=== PATIENT | male | born 1985 | race Caucasian/White ===

== ENCOUNTER 2020-04-18 10:08 | Emergency (ER) | payer OTHER ==
[2020-04-18 10:28] VITALS: BP 124/97; PULSE 79
--- NOTE | 2020-04-18 10:55 | EDM.PDOC ---
ED HPI GENERAL MEDICAL PROBLEM - General Chief Complaint: Upper Extremity Injury/Pain Stated Complaint: L ARM INJURY Time Seen by Provider: 04/18/20 10:43 - History of Present Illness INITIAL COMMENTS - FREE TEXT/NARRATIVE: 84-year-old male presents the emergency room with a left arm injury. Just before arrival the patient was at work he was unloading a riding lawnmower/tractor. By a series of unfortunate events the patient drove off the lift gate fell about 6 feet landing on his left side the tractor was upside down. The patient did hit his head he believes on the roll bar of the tractor but he had no loss of consciousness no headache. Besides his left arm he has no complaints at this time. Patient denies any significant past medical history. Left Arm Pain Score (Numeric/FACES): 8 - Related Data Allergies Allergy/AdvReac Type Severity Reaction Status Date / Time azithromycin [From Zithromax] Allergy Nausea and Verified 04/18/20 10:27 Vomiting ibuprofen Allergy Stomach Verified 04/18/20 10:27 Upset oxycodone HCl Allergy Vomiting Verified 04/18/20 10:27 [From OxyContin] Home Meds: Home Meds Acetaminophen/HYDROcodone [[place] 325-5 MG] 1 - 2 tab PO Q6H PRN #30 tablet 04/18/20 [Rx] Past Medical History Other Gastrointestinal History: H-Pylori Other Musculoskeletal History: 5 fingers right hand, facial fx, left 2nd finger, right 3rd rib Other Neuro History: x3 concussions - Infectious Disease History Infectious Disease History: Reports: Novel Coronavirus - Past Surgical History GI Surgical History: Reports: EGD Other GI Surgeries/Procedures: repair tear in stomach lining as child Other Musculoskeletal Surgeries/Procedures:: left hand surgery - reconstruction, facial fx with surgery, 5 finger fx right hand Social & Family History - Family History Cardiac: Reports: CAD, [place] Endocrine/Metabolic: Reports: Diabetes, Type I, Diabetes, type II Oncologic: Reports: Other (See Below) Other Oncologic Family History: unknown types of ca - Tobacco Use Tobacco Use Status *Q: Current Every Day Tobacco User Years of Tobacco use: 15 Packs/Tins Daily: 0.5 - Caffeine Use Caffeine Use: Reports: Coffee - Recreational Drug Use Recreational Drug Use: No Review of Systems - Review of Systems Review Of Systems: See Below Constitutional: Reports: No Symptoms Eyes: Reports: No Symptoms Ears: Reports: No Symptoms Nose: Reports: No Symptoms Mouth/Throat: Reports: No Symptoms Respiratory: Reports: No Symptoms Cardiovascular: Reports: No Symptoms GI/Abdominal: Reports: No Symptoms Musculoskeletal: Reports: Other (Other than the left arm pain he is doing well). Denies: Neck Pain, Shoulder Pain, Back Pain, Leg Pain, Foot Pain Skin: Reports: No Symptoms Neurological: Reports: No Symptoms Psychiatric: Reports: No Symptoms ED EXAM, GENERAL - Physical Exam Exam: See Below Exam Limited By: No Limitations General Appearance: Alert, No Apparent Distress Eye Exam: Bilateral Eye: Normal Inspection Ears: Normal External Exam, Normal Canal, Hearing Grossly Normal Nose: Normal Inspection, Normal Mucosa, No Blood Throat/Mouth: Normal Lips, Normal Gums, Normal Oropharynx, Normal Voice, No Airway Compromise. No: Normal Teeth (His teeth are in poor state of repair) Head: Atraumatic, Normocephalic Neck: Normal Inspection, Supple, Non-Tender, Full Range of Motion. No: Tender Midline Respiratory/Chest: No Respiratory Distress, Lungs Clear, Normal Breath Sounds Cardiovascular: Normal Peripheral Pulses, Regular Rate, Rhythm, No Edema, No Murmur GI/Abdominal: Normal Bowel Sounds, Soft, Non-Tender, No Distention, Pelvis Stable Back Exam: Normal Inspection, Full Range of Motion. No: CVA Tenderness (L), CVA Tenderness (R), Vertebral Tenderness Extremities: Other (Swelling over the olecranon on the left upper extremity otherwise the other 3 extremities palpate normal normal neurologic function.) Neurological: Alert, Oriented, CN II-XII Intact, Normal Cognition, Normal Gait, Normal Reflexes, No Motor/Sensory Deficits, Other (Initially the patient had a little bit of tingling and numbness in his left forearm however this is now resolved) Psychiatric: Normal Affect, Normal Mood Skin Exam: Warm, Dry, Intact, Normal Color, No Rash Lymphatic: No Adenopathy ED TRAUMA EXTREMITY PROCEDURES - Splinting Left Upper Extremity Splint Site: Posterior slab splint left arm 40 to 45% flexion at the elbow Pre-Procedure NV Status: Normal Post-Procedure NV Status: Normal Splint Material: Fiberglass Splint Design: Posterior Applied & Form Fitted By: Provider Provider Post-Splint Application NV Check: NV Status Normal, Other (Patient may have had a little bit of numbness and tingling and put the splint on but after it set up this was resolved) Complications: No Course - Vital Signs Last Recorded V/S: Last Vital Signs Temp 36.9 C 04/18/20 10:20 Pulse 79 04/18/20 10:20 Resp BP 124/97 H 04/18/20 10:20 Pulse Ox 99 04/18/20 10:20 - Re-Assessments/Exams Free Text/Narrative Re-Assessment/Exam: 04/18/20 13:23 Patient shows an olecranon fracture. Dr. Lui did review the x-rays and would like the patient to be seen in his office Tuesday anticipating surgery on Tuesday Departure - Departure Time of Disposition: 13:24 Disposition: Home, Self-Care 01 Clinical Impression: Fracture of left olecranon process - Discharge Information Referrals: PCP,None [Primary Care Provider] - Yuan Lui MD [Physician] - Forms: ED Department Discharge Additional Instructions: Return to the emergency room with any questions problems or worsening symptoms. Keep an eye on the splint if you develop any numbness or tingling in your hand/fingers loosen up the [place] wrap's that hold the splint in place. If this does not help immediately return to the emergency room. Wear the splint at all times Follow-up with Dr. Lui on Tuesday at 1045 in his office. Anticipate surgery on Tuesday. You have been given some pain pills [place] take 1 or 2 every 6 hours as needed for pain. Allow 12 hours after using this medication before driving or returning to work. However, you should probably should not drive with one arm not in normal functioning condition. Sepsis Event Note (ED) - Evaluation Sepsis Screening Result: No Definite Risk - Focused Exam Vital Signs: Vital Signs Temp Pulse BP Pulse Ox 04/18/20 10:20 36.9 C 79 124/97 H 99
--- NOTE | 2020-04-18 11:37 | CR ---
Left humerus: 2 views of the left humerus were obtained. Comparison: No previous humerus study. Displaced olecranon process fracture is seen with soft tissue swelling. No additional fracture or other bony abnormality is appreciated. Impression: 1. Olecranon process fracture with soft tissue swelling. 2. Left humerus exam is otherwise unremarkable. Diagnostic code #3
--- NOTE | 2020-04-18 11:37 | CR ---
Left forearm: 2 views of the left forearm were obtained. Comparison: No prior forearm study is available. Displaced olecranon process fracture is seen. Soft tissue swelling is noted in this area. Other portions of the forearm exam appear within normal limits. Impression: 1. Displaced olecranon process fracture with soft tissue swelling. Diagnostic code #3
== END 2020-04-18 13:55 | disposition home or self-care (01) ==
LOC: JD.ED 10:08
DX: S52.022A Displaced fracture of olecranon process without intraarticular extension of left ulna, initial encounter for closed fracture (principal); Z88.1 Allergy status to other antibiotic agents; Z88.6 Allergy status to analgesic agent; Z88.5 Allergy status to narcotic agent; Z72.0 Tobacco use; W17.89XA Other fall from one level to another, initial encounter; Y99.0 Civilian activity done for income or pay
CPT/HCPCS: 29105; 29125; 73060-26-LT; 73060-LT; 73090-26-LT; 73090-LT; 99283; 99283-25

== ENCOUNTER 2020-04-23 07:11 | Day surgery (SDC) | payer OTHER ==
[~2020-04-23 07:11] MED LIST: Lactated Ringers 1,000 ML IV SCH; Lidocaine 1%/Sod Bicarbonate in NS 8.4% 1 ML Syringe IDERM PRN; Sodium Chloride 0.9% 10 ML Syringe FLUSH PRN
[2020-04-23] MEDS ORDERED: Bupivacaine 0.25% 10 ML SDV ONE (07:16)
[2020-04-23] MEDS ORDERED: Dexmedetomidine 200 MCG/2 ML SDV ONE (07:25)
[2020-04-23] MEDS ORDERED: Ropivacaine 0.5% 5 MG/ML 30 ML SDV ONE (07:26)
[2020-04-23] MEDS ORDERED: Midazolam 1 MG/ML 2 ML SDV ONE (07:27)
[2020-04-23] MEDS ORDERED: fentaNYL 100 MCG/2 ML SDV ONE (07:27)
--- NOTE | 2020-04-23 07:44 | PCM.PREANE ---
Preanesthetic Assessment - Procedure Proposed Procedure: Left elbow ORIF - Anesthesia/Transfusion/Family Hx Anesthesia History: Prior Anesthesia Without Reaction - Review of Systems General: No Symptoms Pulmonary: No Symptoms, Cough Cardiovascular: No Symptoms Gastrointestinal: No Symptoms Neurological: No Symptoms Other: Reports: None - Physical Assessment NPO Status Date: 04/22/20 NPO Status Time: 23:00 Vital Signs: 122/81 74 16 RR 96% RA 96.6F ASA Class: 2 Mental Status: Alert & Oriented x3 Dentition: Reports: Broken Tooth/Teeth (extremely decayed teeth, most of the upper jaw), Missing Tooth/Teeth, Caries Thyro-Mental Finger Breadths: 3 Mouth Opening Finger Breadths: 3 ROM/Head Extension: Full Lungs: Clear to Auscultation, Normal Respiratory Effort Cardiovascular: Regular Rate, Regular Rhythm - Lab Values: Laboratory Last Values MRSA (PCR) Negative 04/22/20 09:42 - Allergies Allergies/Adverse Reactions: Allergies Allergy/AdvReac Type Severity Reaction Status Date / Time azithromycin [From Zithromax] Allergy Nausea and Verified 04/22/20 14:46 Vomiting ibuprofen Allergy Stomach Verified 04/22/20 14:46 Upset oxycodone HCl Allergy Vomiting Verified 04/22/20 14:46 [From OxyContin] - Acknowledgements Anesthesia Type Planned: General Anesthesia, Regional Block, MAC Pt an Appropriate Candidate for the Planned Anesthesia: Yes Alternatives and Risks of Anesthesia Discussed w Pt/Guardian: Yes Pt/Guardian Understands and Agrees with Anesthesia Plan: Yes PreAnesthesia Questionnaire HEENT History: Reports: Impaired Vision Cardiovascular History: Reports: None Respiratory History: Reports: None Gastrointestinal History: Reports: Helicobacter Pylori Genitourinary History: Reports: None TRAINMAN History: Reports: None Other Musculoskeletal History: 5 fingers right hand, facial fx, left 2nd finger, right 3rd rib Other Neuro History: x3 concussions Psychiatric History: Reports: None Endocrine/Metabolic History: Reports: None Hematologic History: Reports: None Immunologic History: Reports: None Oncologic (Cancer) History: Reports: None Dermatologic History: Reports: None - Infectious Disease History Infectious Disease History: Reports: Novel Coronavirus - Past Surgical History Head Surgeries/Procedures: Reports: None HEENT Surgical History: Reports: None Cardiovascular Surgical History: Reports: None Respiratory Surgical History: Reports: None GI Surgical History: Reports: None, EGD Other GI Surgeries/Procedures: repair tear in stomach lining as child Female Surgical History: Reports: None Male Surgical History: Reports: None Endocrine Surgical History: Reports: None Neurological Surgical History: Reports: None Musculoskeletal Surgical History: Reports: Other (See Below) Other Musculoskeletal Surgeries/Procedures:: left hand surgery - reconstruction, facial fx with surgery, 5 finger fx right hand Oncologic Surgical History: Reports: None Dermatological Surgical History: Reports: None - SUBSTANCE USE Tobacco Use Status *Q: Current Every Day Tobacco User Recreational Drug Use History: No - HOME MEDS Home Medications: Home Meds Acetaminophen/HYDROcodone [[place] 325-5 MG] 1 - 2 tab PO Q6H PRN #30 tablet 04/18/20 [Rx] Cyclobenzaprine [Flexeril] 10 mg PO BID PRN 04/22/20 [History] - CURRENT (IN HOUSE) MEDS Current Meds: Current Medications Lactated Ringer's (Ringers, Lactated) 1,000 mls @ 125 mls/hr IV ASDIRECTED MARITZA Stop: 04/23/20 23:00 Lidocaine/Sodium Bicarbonate (Lidocaine 1%/Sod Bicarbonate In Ns 8.4% 1 Ml Syringe) 0.25 ml IDERM ONETIME PRN PRN Reason: Prior to IV Start Stop: 04/23/20 23:00 Sodium Chloride (Sodium Chloride 0.9% 10 Ml Syringe) 10 ml FLUSH ASDIRECTED PRN PRN Reason: Keep Vein Open Stop: 04/23/20 23:00 Discontinued Medications Bupivacaine HCl (Bupivacaine 0.25% 10 Ml Sdv) Confirm Administered Dose 20 ml .ROUTE .STK-MED ONE Stop: 04/23/20 07:17 Dexmedetomidine HCl (Dexmedetomidine 200 Mcg/2 Ml Sdv) Confirm Administered Dose 200 mcg .ROUTE .STK-MED ONE Stop: 04/23/20 07:26 Fentanyl (Fentanyl 100 Mcg/2 Ml Sdv) Confirm Administered Dose 100 mcg .ROUTE .STK-MED ONE Stop: 04/23/20 07:28 Midazolam HCl (Midazolam 1 Mg/Ml 2 Ml Sdv) Confirm Administered Dose 8 mg .ROUTE .STK-MED ONE Stop: 04/23/20 07:28 Ropivacaine (Ropivacaine 0.5% 5 Mg/Ml 30 Ml Sdv) Confirm Administered Dose 30 ml .ROUTE .STK-MED ONE Stop: 04/23/20 07:27
[2020-04-23] MEDS ORDERED: Propofol 200 MG/20 ML SDV ONE (08:27)
[2020-04-23] MEDS ORDERED: Lidocaine 1% 4 ML ONE (08:38)
[2020-04-23] MEDS ORDERED: Dexamethasone 4 MG/ML 5 ML MDV ONE (08:38)
[2020-04-23] MEDS ORDERED: ceFAZolin 1 GM Vial ONE (08:39)
[2020-04-23] MEDS ORDERED: Ondansetron 4 MG/2 ML SDV ONE (08:58)
--- NOTE | 2020-04-23 09:18 | PCM.PRNOTE ---
- Free Text/Narrative Note: Postoperative regional pain control requested by surgeon. Pre-op Dx: Left olecranon fracture. Surgical procedure: Left elbow open reduction with internal fixation Procedure: Left axillary block of brachial plexus with U/S guidance Requesting physician: Dr. Yuan Jeffries Risks and benefits discussed with the patient preoperatively including infection, bleeding, incomplete or failed block, possible nerve damage, local anesthetic toxicity. Chart reviewed, VS stable. Permit signed. Patient in preoperative room 8, stable , alert and awake. Time out performed at 07:59. Oxygen 3L via NC. Midazolam IV 6 mg given incrementally. Left arm abducted 90 degrees, supinated and supported on the bedside table. Left armpit has been prepped with Chloraprep x 1 and allowed to dry. Under aseptic technique, the brachial plexus branches were identified around axillary artery under ultrasound prior to needle insertion. 2" Stimuplex needle #22 G was inserted under US guidance. Under direct visualization of needle tip the injection of 2% Lidocaine with 1:200k epinephrine (8 mls) followed by 0.5% Ropivacaine with 1:200k epinephrine, 8 mg of Dexamethasone and 40 mcg of Dexmedetomidine (25 ml total volume in divided doses) was performed around median, radial and ulnar branches while nerve stimulation of 0.6 mAmp with elicited wrist flexion, and around musculocutaneous nerve after needle redirection. Nerve stimulation of 0.6 mAmp with elicited flexion of the forearm was used to confirm the proximity of the musculocutaneous nerve. Negative aspiration was maintained with each 3 ml aliquot of injection. No local anesthetic toxicity was noted. Patient is awake, stable and tolerated the procedure well. Please see the attached U/S images Time: 07:59 - 08:15
[2020-04-23] MEDS ORDERED: Lactated Ringers 1,000 ML ONE (09:39)
[2020-04-23 11:15] VITALS: BP 107/51; PULSE 68
--- NOTE | 2020-04-23 11:25 | PCM48HPAN ---
Post Anesthesia Note - EVALUATION WITHIN 48HRS OF ANESTHETIC Vital Signs in Normal Range: Yes Patient Participated in Evaluation: Yes Respiratory Function Stable: Yes Airway Patent: Yes Cardiovascular Function Stable: Yes Hydration Status Stable: Yes Pain Control Satisfactory: Yes Nausea and Vomiting Control Satisfactory: Yes Mental Status Recovered: Yes Vital Signs: Last Vital Signs Temp 98.1 F 04/23/20 10:48 Pulse 68 04/23/20 10:48 Resp 17 04/23/20 10:48 BP 107/51 L 04/23/20 10:48 Pulse Ox 94 L 04/23/20 10:48 - COMMENTS/OBSERVATIONS Free Text/Narrative:: Preparing for discharge home
--- NOTE | 2020-04-23 11:34 | CR ---
Left elbow: 8 fluoroscopic spot views were obtained on the left elbow. Study was obtained utilizing C-arm device in the operating room. Study shows placement of a pin across the olecranon process fracture. Alignment appears anatomic on the final films. Fluoroscopy time given is 18.6 seconds. Impression: 1. Procedural study as noted above. Diagnostic code #2
--- NOTE | 2020-04-23 11:53 | PCM.OPNOTE ---
- General Post-Op/Procedure Note Date of Surgery/Procedure: 04/23/20 Operative Procedure(s): open reduction internal fixation of left olecranon fracture Pre Op Diagnosis: left olecranon fracture Post-Op Diagnosis: Same Anesthesia Technique: MAC, Regional Block Primary Surgeon: Yuan Lui Anesthesia Provider: Manfred Ribera Data Technician: Clementina Warner EBL in mLs: 5 Complications: None Condition: Good Free Text/Narrative:: Intake & Output 04/22/20 04/23/20 04/23/20 22:59 06:59 14:59 Intake Total 450 Balance 450
--- NOTE | 2020-04-23 12:20 | OR ---
DATE OF OPERATION: 04/23/2020 SURGEON: Yuan Lui MD OPERATION PERFORMED: Open reduction and internal fixation of left olecranon fracture. PREOPERATIVE DIAGNOSIS: Left olecranon fracture. POSTOPERATIVE DIAGNOSIS: Left olecranon fracture. ANESTHESIA: MAC with regional block. ANESTHESIA PROVIDER: Bing Plata. DIRECTOR PATIENT ACCOUNTING: Clementina Warner PA-C ESTIMATED BLOOD LOSS: Less than 5 mL. COMPLICATIONS: None. CONDITION: Stable. DESCRIPTION OF PROCEDURE: The patient was identified in the preoperative holding area. Proper site was marked and identified by the surgeon. The patient was taken back to the operating theater, where after adequate anesthesia, the patient was placed supine on a radiolucent table. Left upper extremity was sterilely prepped and draped in the usual sterile fashion. OR time-out was performed. The patient received 2 g IV Ancef. Left upper extremity had a sterile tourniquet applied and it was exsanguinated and the tourniquet was insufflated to 200 mmHg. A standard curvilinear incision was made over the ulna and the olecranon. This was taken down. The olecranon fracture was identified. This was curetted and rongeured of all fracture hematoma as well as any soft tissue. [id number] reduction clamp was used for reduction of the olecranon. A guide pin for 6.5 cannulated screw was then placed. It was found to be in adequate positioning after repositioning it a few times showing it adequately anatomically reduced on both AP and lateral views. A 100 mm 6.5 cannulated [place] screw was then placed and was compressed. There was good interdigitation of the fracture pattern so that there was no rotational instability noted. It had anatomic reduction on both AP and lateral views. At this time, C-arm fluoroscopy showed it to be adequately fixated. Adequate saline was irrigated through the wound. 2-0 Vicryl was used subcutaneously. Bryson were used for closure of skin. The patient was placed in a sterile soft dressing and a posterior slab splint and sent to the PACU in stable condition. MMODAL /[id number]
== END 2020-04-23 11:29 | disposition home or self-care (01) ==
LOC: JD.SDS 07:11
PROVIDERS: ATTEND Orthopaedic Surgery
DX: S52.022A Displaced fracture of olecranon process without intraarticular extension of left ulna, initial encounter for closed fracture (principal); F17.210 Nicotine dependence, cigarettes, uncomplicated; G89.18 Other acute postprocedural pain; Z88.1 Allergy status to other antibiotic agents; Z88.8 Allergy status to other drugs, medicaments and biological substances; Z88.5 Allergy status to narcotic agent; Z98.890 Other specified postprocedural states; Z86.16 Personal history of COVID-19
CPT/HCPCS: 24685; 76000; 87641; C1713; J0690; J1100; J2250; J2405; J2704; J2795; J3010; J3490; J7120; 01740; 64415